=== PATIENT | male | born 1955 | race Caucasian/White ===

== ENCOUNTER 2019-07-01 05:20 | Day surgery (SDC) | payer MEDICARE, OTHER ==
[2019-06-30 16:01] LABS: HEMATOCRIT 41.8 % (42.0-54.0); HEMOGLOBIN 14.6 g/dL (13.5-17.5); MCH 32.7 pg (26.0-34.0); MCHC 34.9 g/dL (31.0-37.0); MCV 93.5 fL (80.0-100.0); MEAN PLATELET VOLUME 10.7 fL (7.4-10.4); RBC 4.47 10x6/uL (4.20-6.10); RDW 12.6 % (11.5-14.5); WBC 8.4 10x3/uL (4.8-10.8)
[~2019-07-01] VITALS: Ht 172.7 cm; Wt 99.1 kg
[2019-07-01] VITALS (10 sets, daily range): BP systolic 149–181; BP diastolic 76–91; Ht 172.7 cm; Wt 99.1 kg
--- NOTE | ~2019-07-01 | OP ---
PATIENT NAME: SOFIA BECERRA MEDICAL RECORD: [id number] :53 LOCATION:[facility] ADMISSION DATE: SURGEON: DAINA PRATT MD DATE OF OPERATION: 07/01/2019 PREOPERATIVE DIAGNOSES: Lumbar spinal stenosis at L1-L2 and L3-L4 on the right with foraminal stenosis. POSTOPERATIVE DIAGNOSES: Lumbar spinal stenosis at L1-L2 and L3-L4 on the right with foraminal stenosis. PROCEDURE: Lumbar laminectomy, medial facetectomy, and foraminotomies at L1-2 and L3-L4 on the right. SURGEON: Daina Pratt MD DESCRIPTION AND TECHNIQUE: After induction of general endotracheal anesthesia, the patient was rolled prone on a Adrien frame. Lumbar spine was prepped and draped in usual sterile fashion. Fluoroscopic x-ray and spinal needle localized L1-L2 interspace on the right side. A skin incision was carried out from the spinous process of L1-L4. Then, using Bovie cautery, spinous processes of L1, L2, L3, and L4 were exposed in subperiosteal manner. Following this, a Midas Missael drill was used to perform a laminectomy at L1, L2, L3, and L4. Hypertrophied ligamentum flavum was removed with Cloward rongeurs. Foraminotomies were carried out at L1-2 and L3-L4 on the right. This relieved nerve root compression at L1, L2, and L3 nerve roots as well as a central dura. Meticulous hemostasis was maintained throughout the wound. The wound was irrigated with copious amounts of Ancef irrigant solution. The fascia was closed with 2-0 Vicryl suture, the subdermal layer was closed with 3-0 Vicryl suture. The skin was closed with eddie. A sterile dressing was applied to the wound. The patient was awakened in good condition and taken to recovery. All counts were reported as correct. Estimated blood loss was minimal. TRANSINT:[id number] Voice Confirmation ID: [id number] DOCUMENT ID: [id number] DAINA PRATT MD CC: [id number] DICTATION DATE: 07/02/19 1443 [employer] PROJECT ENGINEER: 07/02/19 2356 [facility] 07/02/19 [facility] [address] [place] [address]
[~2019-07-01 05:20] MED LIST: ALTACE10 MG PO; COLACE100 MG PO; CRESTOR10 MG PO; ELIQUIS2.5 MG PO; HYDROCODONE-APA1 TAB PO; MS CONTIN30 MG PO; NEURONTIN 300300 MG PO; SENOKOT-S TABLE1 TAB PO
--- NOTE | 2019-07-01 09:02 | NUR ---
PATIENT POSITIONED PRONE ON DOUGLAS FRAME, ALL AREAS PADDED SECURED WITH NO IMPINGEMENTS, GENITALS CHECKED AND FREE OF IMPINGEMENTS, JODY.
--- NOTE | 2019-07-01 11:31 | NUR ---
PATIENT ADMITTED TO ROOM 2220. ADMISSION ASSESSMENT COMPLETED PER PROTOCOL. DRSG TO LUMBAR SPINE C/D/I.
--- NOTE | 2019-07-01 11:45 | NUR ---
CALLED [employer] FOR SCD MACHINE. STATES WILL BRING.
--- NOTE | 2019-07-01 13:20 | NUR ---
RESTING IN BED. POST OP VITALS REMAIN STABLE. SCDS PLACED ON PATIENT. DENIES PAIN. DENIES NEEDS. WILL CONTINUE TO MONITOR.
--- NOTE | 2019-07-01 21:55 | NUR ---
Pt. in bed with family at bedside. alert and orented able to voice needs and wants to staff. O2 at 2.5l via n/c, IV to left FA with ns at 50ml/hr. Dressing to lower back in place with no new bleedig noted.Water and call light in reach.
[2019-07-02] VITALS: BP 148/73
[2019-07-02 04:00] VITALS: BP 149/82
--- NOTE | 2019-07-02 07:12 | NUR ---
ROLO RECIEVED RESTING IN BED WITH NO NEEDS VOICED, CL IN REACH
[2019-07-02 08:47] VITALS: BP 158/85
[2019-07-02] MEDS ORDERED: HYDROCODON-ACE1 EA10 PO (11:25)
--- NOTE | 2019-07-02 11:57 | NUR ---
IV REMOVED WITH CATH INTACT. NO REDNESS OR EDEMA AT SITE. DRESSING CHANGED TO LOWER BACK WITH 12 DODIE INTACT, NO S/S OF INFECTION. EDUCATED PATIENT ON S/S OF INFECTION TO REPORT TO PHYSICIAN, AND ALSO DISCHARGE INTRUCTIONS. PATIENT TAKEN BY WHEELCHAIR TO PRIVATE CAR WITH TO TRANSPORT HOME
== END 2019-07-02 11:59 | disposition home or self-care (01) ==
LOC: D.OPS 05:20 → D.MS 05:20 → D.OPS 07:30 → D.PAN 09:45 → D.OPS 09:45 → D.MS 10:50 → D.OPS 07-02 11:59
PROVIDERS: Anesthesiology; ATTEND Neurological Surgery
DX: M48.061 Spinal stenosis, lumbar region without neurogenic claudication (principal)

== ENCOUNTER 2019-07-07 19:15 | Emergency (ER) | payer MEDICARE, OTHER ==
[~2019-07-07] VITALS: Ht 172.7 cm; Wt 99.1 kg
[~2019-07-07 19:15] MED LIST changes: +HYDROCODON-ACE1 EA10 PO
[2019-07-07 19:21] VITALS: Ht 172.7 cm; Wt 99.1 kg
[2019-07-07] MEDS ORDERED: COZAAR25 MG PO (19:23)
[2019-07-07 19:57] LABS: BASOPHILS 0.2 % (0-2); EOSINOPHILS 2.4 % (0-7); HEMATOCRIT 46.8 % (42.0-54.0); HEMOGLOBIN 16.1 g/dL (13.5-17.5); IMMATURE GRANULOCYTES 0.3 % (0-5); LYMPHOCYTES 23.7 % (15-50); MCH 32.9 pg (26.0-34.0); MCHC 34.4 g/dL (31.0-37.0); MCV 95.7 fL (80.0-100.0); MEAN PLATELET VOLUME 10.2 fL (7.4-10.4); MONOCYTES 11.8 % (2-11); NEUTROPHILS 61.6 % (40-80); RBC 4.89 10x6/uL (4.20-6.10); RDW 12.3 % (11.5-14.5); WBC 8.9 10x3/uL (4.8-10.8)
[2019-07-07 20:08] LABS: ALBUMIN 3.3 g/dL (3.4-5.0); ANION GAP 11.1 mmol/L (8-16); BILIRUBIN - TOTAL 0.45 mg/dL (0.2-1.3); CALCIUM 9.1 mg/dL (8.5-10.1); CARBON DIOXIDE 31.3 mmol/L (21.0-32.0); CREATININE - SERUM 1.1 mg/dL (0.6-1.3); POTASSIUM - SERUM 4.4 mmol/L (3.5-5.1)
[2019-07-07 20:16] LABS: PLATELET COUNT 341 10x3/uL (130-400)
[2019-07-07] MEDS ORDERED: TYLENOL W/CODEI1 TAB PO (22:28)
[2019-07-07 22:48] VITALS: BP 135/74
== END 2019-07-07 22:49 | disposition home or self-care (01) ==
LOC: D.ER 19:15
PROVIDERS: Family Medicine
DX: M54.6 Pain in thoracic spine (principal)